=== PATIENT | male | born 1990 | race Caucasian/White ===

== ENCOUNTER 2018-03-05 06:48 | Emergency (ER) | payer OTHER ==
[2018-03-05] MEDS ORDERED: ONDANSETRON 4 MG/2 ML VIAL ONE (07:06)
--- NOTE | 2018-03-05 07:09 | EDPHY ---
HPI/HX/ROS/PE/MDM Narrative: CHIEF COMPLAINT: Abdominal pain, nausea HPI: This patient is a 27 year old male with history of type I diabetes mellitus. He presents today complaining of lower right quadrant abdominal pain which began one hour prior to arrival, waking him from sleep. The pain is primarily in the RLQ but occasionally seems to radiate towards his right flank. He endorses nausea and has vomited once. He denies diarrhea or dysuria. He has checked his blood sugar levels at home and notes these were within normal limits for him. He felt well yesterday. He denies fever, chills, chest pain, shortness of breath , hematemesis, urinary complaints, or other associated symptoms. REVIEW OF SYSTEMS: A comprehensive 10 system review of systems is otherwise negative aside from elements mentioned in the history of present illness and medical decision making. PMH: Diabetes mellitus. SOCIAL HISTORY: Single. Lives in [place]. Student. PHYSICAL EXAM: General:Patient is alert, uncomfortable appearing, lying on his left side curled up. ENT:Eyes are normal to inspection. ENT inspection normal. Neck: Normal inspection. Full range of motion. Respiratory:No respiratory distress. Breath sounds normal bilaterally. Cardiovascular: Regular rate and rhythm. Strong peripheral pulses. Normal cap refill. Abdomen: Tenderness to RLQ. There are no peritoneal signs. There are normal bowel sounds. Back: Normal to inspection. No tenderness to palpation. Skin: Normal color. No rash. Warm and dry. Extremities: Normal appearance. Full range of motion. Neuro: Oriented x3. Normal motor function. Normal sensory function. ED Course: 27-year-old male with history of type I diabetes mellitus presents with sudden onset RLQ pain beginning one hour prior to arrival. He is tender in the RLQ on exam. IV established. Plan for labs including CBC, chemistries, UA, i-stat. Plan to administer 4mg IV Zofran, 15mg IV Toradol, and 1L IV NS for symptom relief. 7:37 Patient is continuing to experience considerable discomfort. Plan to administer 0.5mg IV Dilaudid for pain relief. WBC negative. UA is positive for 3+ blood. History and findings are suspicious for kidney stone. Plan for CT abdomen/pelvis without contrast for further evaluation. 8:[address] Persaud, radiologist. There is extensive bilateral nephrolithiasis on CT. Suspect recently passed right ureteral calculus, now in the bladder lumen. There is no evidence of appendicitis. Reassessed patient. Discussed imaging and laboratory results. Plan to discharge home in good condition with referral to urology for further evaluation. The patient understands that he has several stones remaining in the kidneys bilaterally. Follow up and return precautions discussed. The patient is comfortable with this plan. - Data Points Imaging Results: Imaging Impressions Abdomen/Pelvis CT 03/05/18 08:19 Impression: 1. Suspect recently passed right ureteral calculus, now in the bladder lumen. Minimal right perinephric edema. No hydronephrosis. 2. Extensive bilateral nephrolithiasis. 3. Normal appendix. No free fluid or localized intraperitoneal process. Findings discussed with Emergency Department physician, Dr. Zac Mcdonald on March 05, 2018 at 0852 hours. Attention: This CT examination is specifically designed to evaluate patients who are clinically suspected of having acute obstructive uropathy. This examination does not use radiographic contrast, and as such, provides only a limited evaluation of the abdomen, pelvis and retroperitoneum. If there is further clinical suspicion for pathological conditions other than obstructive uropathy, a complete CT evaluation of the abdomen and pelvis utilizing intravenous, oral, and rectal contrast should be considered. Imaging: Discussed imaging studies w/ call center manager Radiologist Laboratory Results: Laboratory Results 03/05/18 07:15 03/05/18 07:15 03/05/18 03/05/18 03/05/18 07:40 07:21 07:15 WBC RBC Hgb POC Hgb 17.3 gm/dL gm/dL (13.7-17.5) Hct POC Hct 51 % % (40-51) MCV MCH MCHC RDW Plt Count MPV Neut % (Auto) Lymph % (Auto) [place] % (Auto) Eos % (Auto) Baso % (Auto) Nucleat RBC Rel Count Absolute Neuts (auto) Absolute Lymphs (auto) Absolute Monos (auto) Absolute Eos (auto) Absolute Basos (auto) Absolute Nucleated RBC Immature Gran % Immature Gran # POC Sodium 140 mEq/L mEq/L (135-145) Sodium 135 mEq/L mEq/L (135-145) POC Potassium 3.7 mEq/L mEq/L (3.3-5.0) Potassium 3.9 mEq/L mEq/L (3.5-5.2) POC Chloride 101 mEq/L mEq/L (97-110) Chloride 104 mEq/L mEq/L (97-110) Carbon Dioxide 24 mEq/l mEq/l (22-31) Anion Gap 7 mEq/L mEq/L (6-14) POC BUN 22 mg/dL mg/dL (7-23) BUN 22 mg/dL mg/dL (7-23) Creatinine 0.9 mg/dL mg/dL (0.7-1.3) POC Creatinine 1.0 mg/dL mg/dL (0.7-1.3) Estimated GFR > 60 Glucose 184 mg/dL H mg/dL (70-100) POC Glucose 189 mg/dL H mg/dL (70-100) Calcium 9.0 mg/dL mg/dL (8.5-10.4) Urine Color YELLOW Urine Appearance HAZY Urine pH 6.0 (5.0-7.5) Ur Specific [place] 1.028 (1.002-1.030) Urine Protein 1+ H (NEGATIVE) Urine Ketones NEGATIVE (NEGATIVE) Urine Blood 3+ H (NEGATIVE) Urine Nitrate NEGATIVE (NEGATIVE) Urine Bilirubin NEGATIVE (NEGATIVE) Urine Urobilinogen NEGATIVE EU EU (0.2-1.0) Ur Leukocyte Esterase NEGATIVE (NEGATIVE) Urine RBC 50-182 /hpf H /hpf (0-3) Urine WBC 1-3 /hpf /hpf (0-3) Ur Epithelial Cells TRACE /lpf /lpf (NONE-1+) Urine Mucus 3+ /lpf H /lpf (NONE-1+) Urine Glucose 3+ H (NEGATIVE) 03/05/18 07:15 WBC 3.97 10^3/uL 10^3/uL (3.80-9.50) RBC 5.26 10^6/uL 10^6/uL (4.40-6.38) Hgb 16.7 g/dL g/dL (13.7-17.5) POC Hgb Hct 47.3 % % (40.0-51.0) POC Hct MCV 89.9 fL fL (81.5-99.8) MCH 31.7 pg pg (27.9-34.1) MCHC 35.3 g/dL g/dL (32.4-36.7) RDW 12.2 % % (11.5-15.2) Plt Count 258 10^3/uL 10^3/uL (150-400) MPV 9.8 fL fL (8.7-11.7) Neut % (Auto) 30.9 % L % (39.3-74.2) Lymph % (Auto) 55.9 % H % (15.0-45.0) [place] % (Auto) 9.1 % % (4.5-13.0) Eos % (Auto) 2.8 % % (0.6-7.6) Baso % (Auto) 1.3 % % (0.3-1.7) Nucleat RBC Rel Count 0.0 % % (0.0-0.2) Absolute Neuts (auto) 1.23 10^3/uL L 10^3/uL (1.70-6.50) Absolute Lymphs (auto) 2.22 10^3/uL 10^3/uL (1.00-3.00) Absolute Monos (auto) 0.36 10^3/uL 10^3/uL (0.30-0.80) Absolute Eos (auto) 0.11 10^3/uL 10^3/uL (0.03-0.40) Absolute Basos (auto) 0.05 10^3/uL 10^3/uL (0.02-0.10) Absolute Nucleated RBC 0.00 10^3/uL 10^3/uL (0-0.01) Immature Gran % 0.0 % % (0.0-1.1) Immature Gran # 0.00 10^3/uL 10^3/uL (0.00-0.10) POC Sodium Sodium POC Potassium Potassium POC Chloride Chloride Carbon Dioxide Anion Gap POC BUN BUN Creatinine POC Creatinine Estimated GFR Glucose POC Glucose Calcium Urine Color Urine Appearance Urine pH Ur Specific [place] Urine Protein Urine Ketones Urine Blood Urine Nitrate Urine Bilirubin Urine Urobilinogen Ur Leukocyte Esterase Urine RBC Urine WBC Ur Epithelial Cells Urine Mucus Urine Glucose Medications Given: Discontinued Medications Hydromorphone HCl (Dilaudid) 0.5 mg IVP EDNOW ONE Stop: 03/05/18 07:38 Last Admin: 03/05/18 07:42 Dose: 0.5 mg Sodium Chloride (Ns) 1,000 mls @ 0 mls/hr IV EDNOW ONE; Wide Open PRN Reason: Protocol Stop: 03/05/18 07:12 Last Admin: 03/05/18 07:13 Dose: 1,000 mls Ketorolac Tromethamine (Toradol) 15 mg IVP EDNOW ONE Stop: 03/05/18 07:20 Last Admin: 03/05/18 07:19 Dose: 15 mg Ondansetron HCl (Zofran) 4 mg IVP EDNOW ONE Stop: 03/05/18 07:12 Last Admin: 03/05/18 07:13 Dose: 4 mg Point of Care Test Results: Chemistry 03/05/18 07:21 POC Sodium 140 mEq/L mEq/L (135-145) POC Potassium 3.7 mEq/L mEq/L (3.3-5.0) POC Chloride 101 mEq/L mEq/L (97-110) POC BUN 22 mg/dL mg/dL (7-23) POC Creatinine 1.0 mg/dL mg/dL (0.7-1.3) POC Glucose 189 mg/dL H mg/dL (70-100) ISTAT H&H 03/05/18 07:21 POC Hgb 17.3 gm/dL gm/dL (13.7-17.5) POC Hct 51 % % (40-51) General Initial Vital Signs: Initial Vital Signs Temperature (C) 36.5 C 03/05/18 06:54 Heart Rate 76 03/05/18 06:54 Respiratory Rate 16 03/05/18 06:54 Blood Pressure 139/83 H 03/05/18 06:54 O2 Sat (%) 97 03/05/18 06:54 O2 Delivery Mode Room Air Allergies/Adverse Reactions: latex Allergy (Verified 03/05/18 06:52) metronidazole [From Flagyl] Allergy (Verified 03/05/18 06:52) Home Medications: Medication Instructions Recorded Gabapentin 03/05/18 Humalog 03/05/18 Lisinopril 03/05/18 Tresiba Flextouch U-100 03/05/18 VYVANSE 03/05/18 Departure - Departure Disposition: Home, Routine, Self-Care Clinical Impression: Right kidney stone Condition: Good Instructions: Kidney Stones (ED), How to Strain Your Urine (ED) Additional Instructions: Follow up with a urologist within one week. We have referred you to our urologist foreign law consultant. Follow up with your primary care provider in 2-3 days. Return to the emergency department for fever, severe pain, inability to urinate or other concerns. Strain urine to try and catch the kidney stone and bring this to the urology appointment. Referrals: Sherine Awad MD [Primary Care Provider] - As per Instructions Orestes Alicea MD [Medical Doctor] - As per Instructions Stand Alone Forms: Work Excuse Report Scribed for: Zac Mcdonald Report Scribed by: Ginger Johnston Date of Report: 03/05/18 Time of Report: 07:08 Physician Review and Approval Statement: Portions of this note were transcribed by an ED scribe. I personally performed the history, physical exam, and medical decision making; and confirm the accuracy of the information in the transcribed note.
[2018-03-05] MEDS ORDERED: ONDANSETRON 4 MG/2 ML VIAL IVP ONE (07:11)
[2018-03-05] MEDS ORDERED: NS 1,000 ML IV ONE (07:11)
[2018-03-05] MEDS ORDERED: KETOROLAC 15 MG/1 ML SDV ONE (07:18)
[2018-03-05] MEDS ORDERED: KETOROLAC 15 MG/1 ML SDV IVP ONE (07:19)
[2018-03-05 07:27] LABS: PLATELET COUNT 258 10^3/uL (150-400)
[2018-03-05] MEDS ORDERED: HYDROmorphONE/DILAUDID 2 MG/ML INJ IVP ONE (07:37)
[2018-03-05 09:16] VITALS: BP 119/70
== END 2018-03-05 09:16 | disposition home or self-care (01) ==
DX: N20.0 Calculus of kidney (principal); E10.9 Type 1 diabetes mellitus without complications
CPT/HCPCS: 82435-PO; 82565-PO; 82947-PO; 84132-PO; 84295-PO; 84520-PO; 85014-ER; 96374; J1170; J1885; J2405

== ENCOUNTER → 2018-03-12 | Outpatient (CLI) | payer OTHER | END | disposition home or self-care (01) | LOC: BMCIMAGING 13:47 | PROVIDERS: ATTEND Urology | DX: N20.0 Calculus of kidney (principal) ==